=== PATIENT | female | born 1965 | race Caucasian/White ===

== ENCOUNTER → 2016-07-16 | Day surgery (SDC) | payer OTHER ==
[2016-07-16] VITALS (9 sets, daily range): BP systolic 143–176; BP diastolic 69–92
[~2016-07-16] MED LIST: AMITRIPTYLINE10 MG PO; AMOXICILLIN500 MG PO; ANAPROX DS550 MG PO; ATENOLOL25 MG PO; AUGMENTIN 500 M1 TAB PO; BACTRIM DS 8001 TA1 PO; CIPRO250 MG PO; CLARITIN10 MG PO; COMPAZINE10 MG PO; DONNATAL1 TAB PO; FEOSOL325 MG PO; FIORICET 325 MG1 TAB PO; FLEXERIL10 MG PO; FLONASE ALLERG9.9 ML NAS; FLONASE0.05 MG/AC NS; Fioricet 325 MG1 TAB PO; HYDROCODONE BIT1 T11 PO; K-DUR 20MEQ20 MEQ PO; LEVOTHYROXIN0.025 M1 PO; MEDROL DOSEPAK4 MG PO; MOTRIN800 MG PO; NAPROSYN500 MG PO; NKHM PO; PENICILLIN250 MG PO; PEPCID20 MG PO; PROAIR HFA8.5 GM INH; PYRIDIUM200 MG PO; ULTRAM50 MG PO; VICODIN 500 MG-1 TAB PO; VITAMIN D32000 UNIT PO; ZANTAC150 MG PO; ZITHROMAX Z PA250 MG PO; ZOFRAN ODT4 MG SL; ZOFRAN4 MG PO
[2016-07-16 14:08] LABS: CLARITY CLEAR; COLOR COLORLESS
[2016-07-16 14:14] LABS: CSF RBC < 1000 /uL
[2016-07-16 14:33] LABS: CSF GLUCOSE 54 mg/dL (40-70); CSF TOTAL PROTEIN 38.9 mg/dL (15-45)
[2016-07-16 15:00] LABS: CSF LYMPHOCYTES 97 % (40-80); CSF MONOCYTES 3 % (15-45)
[2016-07-16 15:01] LABS: TUBE# 3
== END | disposition home or self-care (01) ==
LOC: SDC 07-14 12:30
PROVIDERS: Psychiatry & Neurology Neurology
DX: M47.816 Spondylosis without myelopathy or radiculopathy, lumbar region (principal); J45.909 Unspecified asthma, uncomplicated; I10 Essential (primary) hypertension; K21.9 Gastro-esophageal reflux disease without esophagitis; F41.9 Anxiety disorder, unspecified; D64.9 Anemia, unspecified; Z87.01 Personal history of pneumonia (recurrent); Z83.3 Family history of diabetes mellitus; Z80.9 Family history of malignant neoplasm, unspecified; Z82.49 Family history of ischemic heart disease and other diseases of the circulatory system

== ENCOUNTER 2016-10-15 00:05 | Inpatient (IN) | payer OTHER ==
[~2016-10-15] VITALS: Ht 153 cm; Wt 79.9 kg
[2016-10-15 00:10] VITALS: BP 130/68
[2016-10-15 01:02] LABS: BASO % 0.2 % (0.0-1.0); HEMOGLOBIN 11.5 g/dl (12.0-16.0); IG # 0.1 10*3/uL (0.0-0.1); LYMPH # 1.2 10*3/uL (1.3-4.4); LYMPH % 7.6 % (27.0-41.0); MEAN CELL VOLUME 78.8 fl (81.0-99.0); MEAN CORPUSCULAR HGB 25.2 pg (27.0-31.0); MEAN CORPUSCULAR HGB CONC 31.9 g/dl (33.0-37.0); MEAN PLATELET VOLUME 8.5 fl (9.6-12.3); MONO # 1.2 10*3/uL (0.1-1.0); MONO % 7.8 % (3.0-9.0); NEUT # 13.4 10*3/uL (2.3-7.9); PLATELET COUNT AUTOMATED 382 10*3/uL (130-400); RED BLOOD COUNT 4.57 10*6/uL (4.10-5.10); RED CELL DISTRI WIDTH 17.1 % (0-14.5)
[2016-10-15 01:19] LABS: ALBUMIN 3.5 gm/dl (3.1-4.5); ALKALINE PHOSPHATASE 94 U/L (45-117); BUN 9 mg/dl (7-24); CARBON DIOXIDE 24 mmol/L (21-32); CHLORIDE 106 mmol/L (98-107); EST GLOM FILT AFRICAN AMERICAN > 60 ml/min; GLUCOSE 118 mg/dL (65-99); MAGNESIUM 1.7 mg/dL (1.5-2.1); POTASSIUM 3.5 mmol/L (3.5-5.1); SGOT/AST 14 IU/L (3-35); SGPT/ALT 18 U/L (12-78); SODIUM 140 mmol/L (136-145); TOTAL PROTEIN 7.9 gm/dL (6.4-8.2)
[2016-10-15 01:21] LABS: B-hCG (QUALITATIVE) NEGATIVE (NEGATIVE)
[2016-10-15 03:20] LABS: BILIRUBIN 1+ (NEGATIVE); BLOOD 3+ (NEGATIVE); CLARITY CLOUDY (CLEAR); COLOR YELLOW (YELLOW); GLUCOSE NEGATIVE (NEGATIVE); KETONE TRACE (NEGATIVE); LEUKO ESTERASE NEGATIVE (NEGATIVE); NITRITE POSITIVE (NEGATIVE); PROTEIN 2+ (NEGATIVE); SPECIFIC GRAVITY >= 1.030 (1.005-1.030)
[2016-10-15 03:36] LABS: BACTERIA 1+; RBC TNTC rbc/hpf (0-2); URINE REFLEX COMMENT YES (NO)
[2016-10-15 05:35] VITALS: BP 136/72
[2016-10-15 05:43] LABS: CPK 37 U/L (26-192)
[2016-10-15 05:51] LABS: BASO % 0.2 % (0.0-1.0); EOS % 0.2 % (1.0-4.0); HEMATOCRIT 34.7 % (37.0-47.0); IG # 0.1 10*3/uL (0.0-0.1); LYMPH # 1.4 10*3/uL (1.3-4.4); LYMPH % 10.2 % (27.0-41.0); MEAN CELL VOLUME 78.5 fl (81.0-99.0); MEAN CORPUSCULAR HGB 24.9 pg (27.0-31.0); MEAN CORPUSCULAR HGB CONC 31.7 g/dl (33.0-37.0); MEAN PLATELET VOLUME 8.8 fl (9.6-12.3); MONO # 1.3 10*3/uL (0.1-1.0); MONO % 9.6 % (3.0-9.0); NEUT # 10.5 10*3/uL (2.3-7.9); NEUT % 79.3 % (47.0-73.0); PLATELET COUNT AUTOMATED 370 10*3/uL (130-400); RED BLOOD COUNT 4.42 10*6/uL (4.10-5.10); WHITE BLOOD COUNT 13.2 10*3/uL (4.8-10.8)
[2016-10-15 05:52] LABS: CKMB < 0.5 ng/ml (0.5-3.6); TROPONIN I < 0.015 ng/ml (<0.045)
[2016-10-15 05:58] LABS: ALBUMIN 3.3 gm/dl (3.1-4.5); ALKALINE PHOSPHATASE 89 U/L (45-117); BUN 9 mg/dl (7-24); CARBON DIOXIDE 23 mmol/L (21-32); CHLORIDE 105 mmol/L (98-107); CHOLESTEROL 258 mg/dL (<200); EST GLOM FILT AFRICAN AMERICAN > 60 ml/min; FREE T4 1.24 ng/dl (0.76-1.46); GLUCOSE 111 mg/dL (65-99); HDL CHOLESTEROL 48 mg/dl (40-60); LDL CHOLESTEROL 193 mg/dL (9-159); MAGNESIUM 1.9 mg/dL (1.5-2.1); PHOSPHOROUS 3.2 mg/dL (2.5-4.9); POTASSIUM 3.3 mmol/L (3.5-5.1); SGOT/AST 11 IU/L (3-35); SGPT/ALT 16 U/L (12-78); SODIUM 139 mmol/L (136-145); TOTAL PROTEIN 7.7 gm/dL (6.4-8.2); TRIGLYCERIDES 85 mg/dl (<150); VLDL CHOLESTEROL 17 mg/dL (6-40)
[2016-10-15 06:05] LABS: INTERNATIONAL NORM RATIO 1.1 (2.0-3.5); PROTHROMBIN TIME 11.9 SECONDS (9.0-12.4)
[2016-10-15 07:05] LABS: HEMOGLOBIN A1c 5.5 % (4.8-5.6)
[2016-10-15 07:59] LABS: VITAMIN D, 25-HYDROXY 9.1 ng/mL (30-100)
[2016-10-15 08:00] VITALS: BP 146/70
[2016-10-15 08:00] LABS: FOLIC ACID 14.03 ng/mL (>5.38)
[2016-10-15 12:00] VITALS: BP 132/79
[2016-10-15 12:21] LABS: CKMB 0.5 ng/ml (0.5-3.6); CPK 40 U/L (26-192)
[2016-10-15 12:22] LABS: TROPONIN I < 0.015 ng/ml (<0.045)
[2016-10-15 16:00] VITALS: BP 121/61
[2016-10-15 18:30] LABS: CPK 48 U/L (26-192)
[2016-10-15 18:31] LABS: CKMB < 0.5 ng/ml (0.5-3.6); TROPONIN I < 0.015 ng/ml (<0.045)
[2016-10-15 20:00] VITALS: BP 120/67
[2016-10-16] VITALS: BP 143/89
[2016-10-16 06:04] LABS: BASO % 0.4 % (0.0-1.0); EOS # 0.2 10*3/uL (0.0-0.4); EOS % 2.6 % (1.0-4.0); HEMATOCRIT 31.8 % (37.0-47.0); HEMOGLOBIN 9.7 g/dl (12.0-16.0); LYMPH # 1.8 10*3/uL (1.3-4.4); LYMPH % 24.6 % (27.0-41.0); MEAN CELL VOLUME 81.5 fl (81.0-99.0); MEAN CORPUSCULAR HGB 24.9 pg (27.0-31.0); MEAN CORPUSCULAR HGB CONC 30.5 g/dl (33.0-37.0); MEAN PLATELET VOLUME 9.1 fl (9.6-12.3); MONO # 0.5 10*3/uL (0.1-1.0); MONO % 6.4 % (3.0-9.0); NEUT # 4.9 10*3/uL (2.3-7.9); NEUT % 65.7 % (47.0-73.0); PLATELET COUNT AUTOMATED 320 10*3/uL (130-400); RED CELL DISTRI WIDTH 17.3 % (0-14.5); WHITE BLOOD COUNT 7.5 10*3/uL (4.8-10.8)
[2016-10-16 06:43] LABS: BUN 5 mg/dl (7-24); CARBON DIOXIDE 26 mmol/L (21-32); CHLORIDE 109 mmol/L (98-107); EST GLOM FILT AFRICAN AMERICAN > 60 ml/min; GLUCOSE 92 mg/dL (65-99); POTASSIUM 3.3 mmol/L (3.5-5.1); SODIUM 142 mmol/L (136-145)
[2016-10-16 07:53] VITALS: BP 149/78
[2016-10-16 12:00] VITALS: BP 142/86
[2016-10-16 16:00] VITALS: BP 132/70
[2016-10-16 20:00] VITALS: BP 138/76
[2016-10-17] VITALS: BP 130/70
[2016-10-17 04:00] VITALS: BP 149/77
[2016-10-17 06:15] LABS: BASO % 0.5 % (0.0-1.0); EOS # 0.2 10*3/uL (0.0-0.4); EOS % 3.3 % (1.0-4.0); HEMOGLOBIN 8.8 g/dl (12.0-16.0); LYMPH # 1.3 10*3/uL (1.3-4.4); LYMPH % 19.7 % (27.0-41.0); MEAN CELL VOLUME 80.8 fl (81.0-99.0); MEAN CORPUSCULAR HGB 24.5 pg (27.0-31.0); MEAN CORPUSCULAR HGB CONC 30.3 g/dl (33.0-37.0); MEAN PLATELET VOLUME 8.9 fl (9.6-12.3); MONO # 0.5 10*3/uL (0.1-1.0); MONO % 7.7 % (3.0-9.0); NEUT # 4.4 10*3/uL (2.3-7.9); NEUT % 68.2 % (47.0-73.0); PLATELET COUNT AUTOMATED 280 10*3/uL (130-400); RED BLOOD COUNT 3.59 10*6/uL (4.10-5.10); RED CELL DISTRI WIDTH 17.2 % (0-14.5); WHITE BLOOD COUNT 6.4 10*3/uL (4.8-10.8)
[2016-10-17 06:37] LABS: BUN 5 mg/dl (7-24); CARBON DIOXIDE 26 mmol/L (21-32); CHLORIDE 109 mmol/L (98-107); EST GLOM FILT AFRICAN AMERICAN > 60 ml/min; GLUCOSE 97 mg/dL (65-99); POTASSIUM 3.6 mmol/L (3.5-5.1); SODIUM 142 mmol/L (136-145)
[2016-10-17 08:00] VITALS: BP 150/80
[2016-10-17 12:00] VITALS: BP 150/82
[2016-10-17 16:00] VITALS: BP 128/74
[2016-10-17 20:00] VITALS: BP 137/65
[2016-10-18] VITALS: BP 138/75
[2016-10-18 06:28] LABS: BASO % 0.6 % (0.0-1.0); EOS # 0.3 10*3/uL (0.0-0.4); EOS % 5.7 % (1.0-4.0); HEMATOCRIT 29.5 % (37.0-47.0); LYMPH # 1.5 10*3/uL (1.3-4.4); LYMPH % 28.5 % (27.0-41.0); MEAN CELL VOLUME 80.6 fl (81.0-99.0); MEAN CORPUSCULAR HGB 24.6 pg (27.0-31.0); MEAN CORPUSCULAR HGB CONC 30.5 g/dl (33.0-37.0); MEAN PLATELET VOLUME 8.8 fl (9.6-12.3); MONO # 0.4 10*3/uL (0.1-1.0); MONO % 8.3 % (3.0-9.0); NEUT # 2.9 10*3/uL (2.3-7.9); NEUT % 56.7 % (47.0-73.0); PLATELET COUNT AUTOMATED 338 10*3/uL (130-400); RED BLOOD COUNT 3.66 10*6/uL (4.10-5.10); RED CELL DISTRI WIDTH 16.9 % (0-14.5); WHITE BLOOD COUNT 5.1 10*3/uL (4.8-10.8)
[2016-10-18 08:00] VITALS: BP 152/66
[2016-10-18] MEDS ORDERED: CIPRO500 MG PO (11:20)
[2016-10-18] MEDS ORDERED: FLAGYL500 MG PO (11:20)
== END 2016-10-18 11:56 | disposition home or self-care (01) | DRG 872 ==
LOC: ED 00:05 → 4E 04:28 → EDHOLD 04:28 → 4E 04:49
PROVIDERS: Emergency Medicine Emergency Medical Services; Hospitalist; Internal Medicine Hospice and Palliative Medicine
DX: A41.9 Sepsis, unspecified organism (principal); E87.8 Other disorders of electrolyte and fluid balance, not elsewhere classified; E44.0 Moderate protein-calorie malnutrition; K81.9 Cholecystitis, unspecified; I10 Essential (primary) hypertension; K52.9 Noninfective gastroenteritis and colitis, unspecified; D25.9 Leiomyoma of uterus, unspecified; Z68.35 Body mass index [BMI] 35.0-35.9, adult; Z90.49 Acquired absence of other specified parts of digestive tract; Z87.81 Personal history of (healed) traumatic fracture; Z98.891 History of uterine scar from previous surgery; Z80.1 Family history of malignant neoplasm of trachea, bronchus and lung; Z82.49 Family history of ischemic heart disease and other diseases of the circulatory system; Z88.5 Allergy status to narcotic agent; Z79.899 Other long term (current) drug therapy

== ENCOUNTER → 2017-01-18 | Outpatient (CLI) | payer OTHER ==
[~2017-01-18] MED LIST changes: +CIPRO500 MG PO; +FLAGYL500 MG PO
== END | disposition home or self-care (01) ==
LOC: NM 12:45
DX: R10.11 Right upper quadrant pain (principal); K21.9 Gastro-esophageal reflux disease without esophagitis

== ENCOUNTER 2024-01-20 13:54 | Emergency (ER) | payer OTHER ==
[~2024-01-20] VITALS: Ht 152.4 cm; Wt 83.9 kg
[~2024-01-20 13:54] MED LIST changes: +CETIRIZINE10 MG PO; +NORVASC5 MG PO; +PANTOPRAZOLE SO40 MG PO
[2024-01-20 14:12] VITALS: BP 155/107
[2024-01-20] MEDS ORDERED: ACETAMINOPHEN 325 MG TAB PO ONE (14:55)
[2024-01-20] MEDS ORDERED: Acetaminophen/Hydrocodone 5 MG/325 MG TABLET PO ONE (14:55)
[2024-01-20] MEDS ORDERED: IBUPROFEN 400 MG TAB PO ONE (15:00)
[2024-01-20] MEDS ORDERED: LIDOCAINE 1 EA PATCH T ONE (15:00)
[2024-01-20] MEDS ORDERED: ASPERCREME LID1 EACH T (16:41)
[2024-01-20] MEDS ORDERED: HYDROCODONE-AC1 EAC1 PO (16:41)
[2024-01-20] MEDS ORDERED: Motrin,Rufen400 MG PO (16:41)
[2024-01-20] MEDS ORDERED: TYLENOL325 M1 PO (16:41)
== END 2024-01-20 17:34 | disposition home or self-care (01) ==
LOC: ED 13:54
DX: M54.42 Lumbago with sciatica, left side (principal); J45.909 Unspecified asthma, uncomplicated; I10 Essential (primary) hypertension; K21.9 Gastro-esophageal reflux disease without esophagitis; F41.9 Anxiety disorder, unspecified; D64.9 Anemia, unspecified; Z88.5 Allergy status to narcotic agent; Z90.49 Acquired absence of other specified parts of digestive tract; Z98.890 Other specified postprocedural states

== ENCOUNTER 2025-05-24 22:07 | Emergency (ER) | payer OTHER ==
[~2025-05-24] VITALS: Ht 154.9 cm; Wt 83.9 kg
[~2025-05-24 22:07] MED LIST changes: +ASPERCREME LID1 EACH T; +HYDROCODONE-AC1 EAC1 PO; +Motrin,Rufen400 MG PO; +TYLENOL325 M1 PO
[2025-05-25 00:17] LABS: BASO # 0.1 10*3/uL (0.0-0.1); BASO % 0.7 % (0.0-1.0); EOS # 0.1 10*3/uL (0.0-0.4); EOS % 0.9 % (1.0-4.0); MEAN CELL VOLUME 86.0 fl (81.0-99.0); MEAN CORPUSCULAR HGB 27.8 pg (27.0-31.0); MEAN PLATELET VOLUME 8.2 fl (9.6-12.3); MONO # 0.8 10*3/uL (0.1-1.0); MONO % 7.2 % (3.0-9.0); NEUT # 7.7 10*3/uL (2.3-7.9); NEUT % 74.1 % (47.0-73.0); NUCLEATED RED BLOOD CELL 0.0 % (0.0-0.0); NUCLEATED RED BLOOD CELL 0.0 10*3/uL (0.0-0.0); PLATELET COUNT AUTOMATED 294 10*3/uL (130-400); RED CELL DISTRI WIDTH 14.2 % (0-14.5)
[2025-05-25 00:36] LABS: BUN 13 mg/dl (9-23); SGPT/ALT 18 U/L (5-49)
[2025-05-25 01:24] LABS: BILIRUBIN Negative (Negative); BLOOD 2+ (Negative); CLARITY Clear (Clear); COLOR Yellow (Yellow); KETONE 2+ (Negative); LEUKO ESTERASE Trace (Negative); NITRITE Negative (Negative); SPECIFIC GRAVITY 1.015 (1.001-1.030); UROBILINOGEN 0.2 E.U./dl (0.0-1.0)
[2025-05-25 01:54] LABS: PH >= 9.0 (4.5-8.0)
[2025-05-25 02:02] LABS: BACTERIA TRACE; WBC 0-2 wbc/hpf (0-5)
[2025-05-25 03:58] VITALS: BP 164/76
== END 2025-05-25 04:50 | disposition home or self-care (01) ==
LOC: ED 22:07
PROVIDERS: Emergency Medicine
DX: N93.9 Abnormal uterine and vaginal bleeding, unspecified (principal); D30.20 Benign neoplasm of unspecified ureter; R10.9 Unspecified abdominal pain; N85.00 Endometrial hyperplasia, unspecified; N95.0 Postmenopausal bleeding; J45.909 Unspecified asthma, uncomplicated; K21.9 Gastro-esophageal reflux disease without esophagitis; F41.9 Anxiety disorder, unspecified; I10 Essential (primary) hypertension; Z98.890 Other specified postprocedural states; Z90.49 Acquired absence of other specified parts of digestive tract; Z88.5 Allergy status to narcotic agent